=== PATIENT | male | born 1950 | race Caucasian/White ===

== ENCOUNTER 2022-01-17 19:01 | Inpatient (IN) | payer MEDICARE, OTHER ==
[2022-01-17] MEDS: Apixaban 5 MG TAB PO SCH (21:49)
[2022-01-17] MEDS: Famotidine 20 MG TAB PO SCH (21:49)
[2022-01-17] MEDS: Benzonatate 100 MG CAP PO SCH (21:49)
[2022-01-17] MEDS: Melatonin 3 MG TAB PO PRN (22:34)
[2022-01-17 23:21] LABS: Bilirubin Small (Negative); Blood, Urine Large (Negative); Clarity Slightly Cloudy (Clear); Glucose, Urine (Dipstick) Negative (Negative); Ketone, Urine 40 mg/dL (Negative); Leukocyte Trace (Negative); Nitrite Negative (Negative); Protein, Urine (Dipstick) 30 mg/dL (Neg-Trace); Urobilinogen 0.2 mg/dL (Less than 2); pH, Urine 5.5 (5.0-9.0)
[2022-01-17 23:27] LABS: RBC/HPF Greater than 50 HPF (0-3)
[2022-01-17] MEDS: Acetaminophen 325 MG TAB PO PRN (23:30)
[2022-01-18 05:26] LABS: #Basophils 0.2 thou/uL (0.0-0.2); #Eosinphils 0.5 thou/uL (0.0-0.7); #Lymphocytes 1.2 thou/uL (1.20-3.40); #Monocytes 1.2 thou/uL (0.11-0.59); %Basophils 2.8 % (0.0-1.0); %Eosinophils 5.9 % (0.0-10.0); %Lymphocytes 15.2 % (21.0-51.0); %Monocytes 14.2 % (0.0-10.0); %Neutrophils 61.9 % (42.0-75.0); Mean Corpuscular HGB CONC 32.7 g/dL (32.0-36.0); Mean Corpuscular Hemoglobin 29.6 pg (27.0-31.0); Mean Corpuscular Volume 90.5 fL (78.0-98.0); Mean Platelet Volume 7.2 fL (7.4-10.4); Platelet Count 311 thou/uL (130-400); RBC Distribution Width 11.8 % (11.5-14.5); Red Blood Cell (RBC) Count 5.08 mill/uL (4.70-6.10); White Blood Cell (WBC) Count 8.1 thou/uL (4.8-10.8)
[2022-01-18] MEDS: Sodium Chloride 0.65% Nasal 44 ML BOT EA NARE PRN ×2 (06:16→20:06)
[2022-01-18 06:18] LABS: Anion Gap 17 mmol/L (10-20); BUN (Urea Nitrogen) 17 mg/dL (8.4-25.7); Calc. Creatinine Clearance 108 mL/min (70-130); Carbon Dioxide 25 mmol/L (23-31); Chloride 101 mmol/L (98-107); Glucose 89 mg/dL (80-115); Potassium 4.5 mmol/L (3.5-5.1); Sodium 138 mmol/L (136-145)
[2022-01-18] MEDS: Acetaminophen 325 MG TAB PO PRN ×2 (08:13→20:06)
[2022-01-18] MEDS: Famotidine 20 MG TAB PO SCH ×2 (08:13→20:07)
[2022-01-18] MEDS: Apixaban 5 MG TAB PO SCH ×2 (08:13→20:05)
[2022-01-18] MEDS: Propranolol 10 MG TAB PO SCH (08:13)
[2022-01-18] MEDS: Benzonatate 100 MG CAP PO SCH ×3 (08:13→20:08)
[2022-01-18] MEDS: Clotrimazole 1% Cream 15 GM TUBE TOP SCH ×2 (09:48→20:07)
[2022-01-18] MEDS: Melatonin 3 MG TAB PO PRN (20:05)
[2022-01-19] MEDS: Apixaban 5 MG TAB PO SCH ×2 (09:04→21:05)
[2022-01-19] MEDS: Propranolol 10 MG TAB PO SCH (09:04)
[2022-01-19] MEDS: Famotidine 20 MG TAB PO SCH (09:04)
[2022-01-19] MEDS: Acetaminophen 325 MG TAB PO PRN ×2 (09:05→21:04)
[2022-01-19] MEDS: Benzonatate 100 MG CAP PO SCH ×3 (09:08→21:05)
[2022-01-19] MEDS: Clotrimazole 1% Cream 15 GM TUBE TOP SCH ×2 (09:08→21:05)
[2022-01-19] MEDS: Polyethylene Glycol 3350 17 GM Packet PO PRN (09:12)
[2022-01-19] MEDS: Melatonin 3 MG TAB PO PRN (21:05)
[2022-01-20] MEDS: GUAIFENESIN SF SOLN 200 MG/10 ML UDCUP PO PRN ×3 (05:31→20:04)
[2022-01-20] MEDS: Famotidine 20 MG TAB PO SCH ×2 (09:26→21:27)
[2022-01-20] MEDS: Propranolol 10 MG TAB PO SCH (09:26)
[2022-01-20] MEDS: Apixaban 5 MG TAB PO SCH ×2 (09:26→21:27)
[2022-01-20] MEDS: Benzonatate 100 MG CAP PO SCH ×3 (09:26→21:27)
[2022-01-20] MEDS: Clotrimazole 1% Cream 15 GM TUBE TOP SCH ×2 (09:27→21:28)
[2022-01-20] MEDS: Acetaminophen 325 MG TAB PO PRN (13:08)
[2022-01-21] MEDS: Melatonin 3 MG TAB PO PRN (00:38)
[2022-01-21] MEDS: GUAIFENESIN SF SOLN 200 MG/10 ML UDCUP PO PRN (00:38)
[2022-01-21] MEDS: Acetaminophen 325 MG TAB PO PRN ×2 (00:38→08:50)
[2022-01-21] MEDS: Albuterol 200 PUFF (6.7GM INHALER) INH PRN ×2 (08:47→20:06)
[2022-01-21] MEDS: Famotidine 20 MG TAB PO SCH ×2 (08:50→20:07)
[2022-01-21] MEDS: Propranolol 10 MG TAB PO SCH (08:52)
[2022-01-21] MEDS: Benzonatate 100 MG CAP PO SCH ×3 (08:52→20:07)
[2022-01-21] MEDS: Clotrimazole 1% Cream 15 GM TUBE TOP SCH ×2 (08:52→20:08)
[2022-01-21] MEDS: Apixaban 5 MG TAB PO SCH ×2 (08:52→20:07)
[2022-01-21] MEDS: Melatonin 3 MG TAB PO SCH (20:07)
[2022-01-22] MEDS: GUAIFENESIN SF SOLN 200 MG/10 ML UDCUP PO PRN ×2 (00:50→23:04)
[2022-01-22] MEDS: Acetaminophen 325 MG TAB PO PRN ×4 (00:51→22:16)
[2022-01-22 01:14] LABS: Bilirubin Negative (Negative); Blood, Urine Large (Negative); Clarity Clear (Clear); Glucose, Urine (Dipstick) Negative (Negative); Ketone, Urine Negative (Negative); Leukocyte Negative (Negative); Nitrite Negative (Negative); Protein, Urine (Dipstick) Negative (Neg-Trace); Urobilinogen 0.2 mg/dL (Less than 2); pH, Urine 5.5 (5.0-9.0)
[2022-01-22 01:18] LABS: Bacteria/HPF Rare-Few HPF (None Seen); Specific Gravity, Urine 1.005 (1.002-1.036); Squamous Epithelial 0-3 HPF (0-3); Urine Culture Reflex No No
[2022-01-22] MEDS: Albuterol 200 PUFF (6.7GM INHALER) INH PRN ×3 (08:00→21:16)
[2022-01-22] MEDS: Propranolol 10 MG TAB PO SCH (08:34)
[2022-01-22] MEDS: Benzonatate 100 MG CAP PO SCH ×3 (08:34→21:17)
[2022-01-22] MEDS: Famotidine 20 MG TAB PO SCH ×2 (08:34→21:18)
[2022-01-22] MEDS: Apixaban 5 MG TAB PO SCH ×2 (08:35→21:17)
[2022-01-22] MEDS: Clotrimazole 1% Cream 15 GM TUBE TOP SCH ×2 (08:36→21:18)
[2022-01-22] MEDS: Melatonin 3 MG TAB PO SCH (21:17)
[2022-01-23] MEDS: Acetaminophen 325 MG TAB PO PRN (05:44)
[2022-01-23] MEDS: Propranolol 10 MG TAB PO SCH (09:47)
[2022-01-23] MEDS: Apixaban 5 MG TAB PO SCH ×2 (09:48→20:49)
[2022-01-23] MEDS: Benzonatate 100 MG CAP PO SCH ×3 (09:48→20:49)
[2022-01-23] MEDS: Famotidine 20 MG TAB PO SCH ×2 (09:48→21:16)
[2022-01-23] MEDS: Clotrimazole 1% Cream 15 GM TUBE TOP SCH ×2 (09:49→21:16)
[2022-01-23] MEDS: Albuterol 200 PUFF (6.7GM INHALER) INH PRN (09:52)
[2022-01-23] MEDS: GUAIFENESIN SF SOLN 200 MG/10 ML UDCUP PO PRN (16:46)
[2022-01-23] MEDS: Melatonin 3 MG TAB PO SCH (20:49)
[2022-01-24] MEDS: Benzonatate 100 MG CAP PO SCH ×3 (09:44→20:16)
[2022-01-24] MEDS: Famotidine 20 MG TAB PO SCH ×2 (09:44→20:17)
[2022-01-24] MEDS: Propranolol 10 MG TAB PO SCH (09:44)
[2022-01-24] MEDS: Apixaban 5 MG TAB PO SCH ×2 (09:44→20:17)
[2022-01-24] MEDS: Clotrimazole 1% Cream 15 GM TUBE TOP SCH ×2 (09:44→20:18)
[2022-01-24] MEDS: Melatonin 3 MG TAB PO SCH (20:15)
[2022-01-25] MEDS: Apixaban 5 MG TAB PO SCH ×2 (09:08→20:08)
[2022-01-25] MEDS: Famotidine 20 MG TAB PO SCH ×2 (09:08→20:05)
[2022-01-25] MEDS: Propranolol 10 MG TAB PO SCH (09:08)
[2022-01-25] MEDS: Benzonatate 100 MG CAP PO SCH ×3 (09:08→20:08)
[2022-01-25] MEDS: Clotrimazole 1% Cream 15 GM TUBE TOP SCH ×2 (09:09→20:10)
[2022-01-25] MEDS: GUAIFENESIN SF SOLN 200 MG/10 ML UDCUP PO PRN (19:35)
[2022-01-25] MEDS: Acetaminophen 325 MG TAB PO PRN (20:05)
[2022-01-25] MEDS: Melatonin 3 MG TAB PO SCH (20:07)
[2022-01-26] MEDS: Acetaminophen 325 MG TAB PO PRN ×3 (02:38→20:36)
[2022-01-26] MEDS: GUAIFENESIN SF SOLN 200 MG/10 ML UDCUP PO PRN ×2 (02:39→20:32)
[2022-01-26] MEDS: Apixaban 5 MG TAB PO SCH ×2 (09:22→20:31)
[2022-01-26] MEDS: Clotrimazole 1% Cream 15 GM TUBE TOP SCH ×2 (09:22→20:32)
[2022-01-26] MEDS: Famotidine 20 MG TAB PO SCH ×2 (09:22→20:31)
[2022-01-26] MEDS: Benzonatate 100 MG CAP PO SCH ×3 (09:22→20:31)
[2022-01-26] MEDS: Propranolol 10 MG TAB PO SCH (09:22)
[2022-01-26] MEDS: Melatonin 3 MG TAB PO SCH (20:31)
[2022-01-27] MEDS: Acetaminophen 325 MG TAB PO PRN ×3 (00:52→20:44)
[2022-01-27] MEDS: GUAIFENESIN SF SOLN 200 MG/10 ML UDCUP PO PRN ×3 (00:53→19:55)
[2022-01-27] MEDS: Albuterol 200 PUFF (6.7GM INHALER) INH PRN ×3 (00:56→15:44)
[2022-01-27] MEDS ORDERED: Tamsulosin HCl 0.4 MG CAP ONE (08:04)
[2022-01-27] MEDS: Propranolol 10 MG TAB PO SCH (08:52)
[2022-01-27] MEDS: Famotidine 20 MG TAB PO SCH ×2 (08:52→20:27)
[2022-01-27] MEDS: Benzonatate 100 MG CAP PO SCH ×3 (08:52→20:24)
[2022-01-27] MEDS: Apixaban 5 MG TAB PO SCH (08:52)
[2022-01-27] MEDS: Clotrimazole 1% Cream 15 GM TUBE TOP SCH ×2 (08:56→20:28)
[2022-01-27 12:58] LABS: Clarity Slightly Cloudy (Clear)
[2022-01-27 13:05] LABS: Leukocyte Unable to Interpret (Negative); Nitrite Negative (Negative)
[2022-01-27 13:06] LABS: Glucose, Urine (Dipstick) Negative (Negative); Ketone, Urine Trace mg/dL (Negative); Protein, Urine (Dipstick) 100 mg/dL (Neg-Trace)
[2022-01-27 13:07] LABS: Bilirubin Moderate (Negative); Blood, Urine Large (Negative); RBC/HPF Greater than 50 HPF (0-3); Squamous Epithelial 0-3 HPF (0-3)
[2022-01-27 13:08] LABS: Bacteria/HPF 2+ HPF (None Seen)
[2022-01-27 13:17] LABS: Anion Gap 14 mmol/L (10-20); BUN (Urea Nitrogen) 11 mg/dL (8.4-25.7); Calc. Creatinine Clearance 117 mL/min (70-130); Calcium 9.7 mg/dL (7.8-10.44); Carbon Dioxide 27 mmol/L (23-31); Chloride 102 mmol/L (98-107); Glucose 106 mg/dL (80-115); Sodium 139 mmol/L (136-145)
[2022-01-27 13:37] LABS: Hemoglobin 13.8 g/dL (14.0-18.0); Mean Corpuscular Hemoglobin 29.3 pg (27.0-31.0); Mean Corpuscular Volume 91.5 fL (78.0-98.0); Mean Platelet Volume 7.2 fL (7.4-10.4); Platelet Count 223 thou/uL (130-400); Red Blood Cell (RBC) Count 4.69 mill/uL (4.70-6.10); White Blood Cell (WBC) Count 7.4 thou/uL (4.8-10.8)
[2022-01-27 14:04] LABS: Eosinophils 8 % (0-10); Lymphocytes 18 % (21-51); Manual Diff?? YES; Monocytes 9 % (0-10); Neutrophil 65 % (42-75)
[2022-01-27 14:05] LABS: Anisocytosis SLIGHT = 6-15 cells (100X) (0-5/hpf); Platelet Morphology Comment Appears Adequate
[2022-01-27 14:06] LABS: MDiff Complete? YES
[2022-01-27] MEDS: Tamsulosin HCl 0.4 MG CAP PO SCH (20:24)
[2022-01-27] MEDS: Melatonin 3 MG TAB PO SCH ×2 (20:24→20:30)
[2022-01-28] MEDS: GUAIFENESIN SF SOLN 200 MG/10 ML UDCUP PO PRN (01:38)
[2022-01-28] MEDS: Acetaminophen 325 MG TAB PO PRN ×2 (08:18→20:33)
[2022-01-28] MEDS: Benzonatate 100 MG CAP PO SCH ×3 (08:18→20:24)
[2022-01-28] MEDS: Famotidine 20 MG TAB PO SCH ×2 (08:18→20:24)
[2022-01-28] MEDS: Propranolol 10 MG TAB PO SCH (08:20)
[2022-01-28] MEDS: Clotrimazole 1% Cream 15 GM TUBE TOP SCH ×2 (08:20→20:24)
[2022-01-28] MEDS: Albuterol 200 PUFF (6.7GM INHALER) INH PRN (08:26)
[2022-01-28] MEDS ORDERED: guaiFENesin/Codeine Phosphate 100 mg/10 mg 5 ml UD Cup PO PRN (13:09)
[2022-01-28] MEDS ORDERED: predniSONE 20 MG TAB PO SCH ×2 (13:30→14:00)
[2022-01-28] MEDS: Melatonin 3 MG TAB PO SCH (20:22)
[2022-01-28] MEDS: Tamsulosin HCl 0.4 MG CAP PO SCH (20:25)
[2022-01-29] MEDS: predniSONE 20 MG TAB PO SCH (09:03)
[2022-01-29] MEDS: Albuterol 200 PUFF (6.7GM INHALER) INH PRN (09:03)
[2022-01-29] MEDS: Propranolol 10 MG TAB PO SCH (09:03)
[2022-01-29] MEDS: Benzonatate 100 MG CAP PO SCH ×3 (09:03→20:11)
[2022-01-29] MEDS: Famotidine 20 MG TAB PO SCH ×2 (09:03→20:11)
[2022-01-29] MEDS: Acetaminophen 325 MG TAB PO PRN ×2 (09:06→20:16)
[2022-01-29] MEDS: Clotrimazole 1% Cream 15 GM TUBE TOP SCH ×2 (09:07→20:08)
[2022-01-29] MEDS ORDERED: Mometasone/Formoterol 60 PUFF AER INH SCH (19:00)
[2022-01-29] MEDS: Amoxicillin/Potassium Clav 875 MG TAB PO SCH (20:10)
[2022-01-29] MEDS: GUAIFENESIN SF SOLN 200 MG/10 ML UDCUP PO PRN (20:10)
[2022-01-29] MEDS: Melatonin 3 MG TAB PO SCH (20:11)
[2022-01-29] MEDS: Tamsulosin HCl 0.4 MG CAP PO SCH (20:11)
[2022-01-30] MEDS: Acetaminophen 325 MG TAB PO PRN ×2 (10:05→21:09)
[2022-01-30] MEDS: predniSONE 20 MG TAB PO SCH (10:05)
[2022-01-30] MEDS: Propranolol 10 MG TAB PO SCH (10:07)
[2022-01-30] MEDS: Famotidine 20 MG TAB PO SCH ×2 (10:07→21:02)
[2022-01-30] MEDS: Benzonatate 100 MG CAP PO SCH ×3 (10:07→21:02)
[2022-01-30] MEDS: Amoxicillin/Potassium Clav 875 MG TAB PO SCH ×2 (10:08→21:03)
[2022-01-30] MEDS: Clotrimazole 1% Cream 15 GM TUBE TOP SCH ×2 (10:08→21:03)
[2022-01-30] MEDS: Mometasone/Formoterol 60 PUFF AER INH SCH ×2 (10:08→21:01)
[2022-01-30] MEDS: Polyethylene Glycol 3350 17 GM Packet PO PRN (16:28)
[2022-01-30] MEDS: Melatonin 3 MG TAB PO SCH (21:02)
[2022-01-30] MEDS: Tamsulosin HCl 0.4 MG CAP PO SCH (21:02)
[2022-01-30] MEDS: GUAIFENESIN SF SOLN 200 MG/10 ML UDCUP PO PRN (21:09)
[2022-01-31] MEDS: predniSONE 20 MG TAB PO SCH (09:10)
[2022-01-31] MEDS: Amoxicillin/Potassium Clav 875 MG TAB PO SCH ×2 (09:10→20:32)
[2022-01-31] MEDS: Benzonatate 100 MG CAP PO SCH ×3 (09:10→20:32)
[2022-01-31] MEDS: Famotidine 20 MG TAB PO SCH ×2 (09:11→20:32)
[2022-01-31] MEDS: Clotrimazole 1% Cream 15 GM TUBE TOP SCH ×2 (09:11→20:32)
[2022-01-31] MEDS: Propranolol 10 MG TAB PO SCH (09:11)
[2022-01-31] MEDS: Mometasone/Formoterol 60 PUFF AER INH SCH ×2 (09:11→20:31)
[2022-01-31] MEDS: Acetaminophen 325 MG TAB PO PRN ×2 (09:15→20:37)
[2022-01-31] MEDS: Tamsulosin HCl 0.4 MG CAP PO SCH (20:32)
[2022-01-31] MEDS: Melatonin 3 MG TAB PO SCH (20:32)
[2022-01-31] MEDS: GUAIFENESIN SF SOLN 200 MG/10 ML UDCUP PO PRN (20:37)
[2022-02-01] MEDS: Acetaminophen 325 MG TAB PO PRN ×2 (08:58→21:08)
[2022-02-01] MEDS: Amoxicillin/Potassium Clav 875 MG TAB PO SCH ×2 (09:00→09:05)
[2022-02-01] MEDS: Benzonatate 100 MG CAP PO SCH ×3 (09:04→20:50)
[2022-02-01] MEDS: predniSONE 20 MG TAB PO SCH (09:05)
[2022-02-01] MEDS: Famotidine 20 MG TAB PO SCH ×2 (09:05→20:50)
[2022-02-01] MEDS: Mometasone/Formoterol 60 PUFF AER INH SCH ×2 (09:06→21:19)
[2022-02-01] MEDS: Clotrimazole 1% Cream 15 GM TUBE TOP SCH ×2 (09:06→20:51)
[2022-02-01] MEDS: Propranolol 10 MG TAB PO SCH (09:07)
[2022-02-01] MEDS: Polyethylene Glycol 3350 17 GM Packet PO PRN ×2 (09:16→22:20)
[2022-02-01] MEDS: Melatonin 3 MG TAB PO SCH (20:50)
[2022-02-01] MEDS: Tamsulosin HCl 0.4 MG CAP PO SCH (20:50)
[2022-02-01] MEDS: GUAIFENESIN SF SOLN 200 MG/10 ML UDCUP PO PRN (21:08)
[2022-02-01] MEDS: Apixaban 2.5 MG TAB PO SCH (22:20)
[2022-02-02 05:17] LABS: Hemoglobin 13.7 g/dL (14.0-18.0); Platelet Count 290 thou/uL (130-400)
[2022-02-02 05:32] LABS: Calc. Creatinine Clearance 110 mL/min (70-130)
[2022-02-02] MEDS: Polyethylene Glycol 3350 17 GM Packet PO PRN (08:42)
[2022-02-02] MEDS: Amoxicillin/Potassium Clav 875 MG TAB PO SCH ×2 (08:43→20:15)
[2022-02-02] MEDS: Apixaban 2.5 MG TAB PO SCH ×2 (08:43→20:15)
[2022-02-02] MEDS: predniSONE 20 MG TAB PO SCH (08:43)
[2022-02-02] MEDS: Benzonatate 100 MG CAP PO SCH ×3 (08:43→20:15)
[2022-02-02] MEDS: Famotidine 20 MG TAB PO SCH ×2 (08:43→20:16)
[2022-02-02] MEDS: Acetaminophen 325 MG TAB PO PRN ×3 (08:44→20:22)
[2022-02-02] MEDS: Mometasone/Formoterol 60 PUFF AER INH SCH ×2 (09:36→20:16)
[2022-02-02] MEDS: Clotrimazole 1% Cream 15 GM TUBE TOP SCH ×2 (09:36→20:16)
[2022-02-02] MEDS: Melatonin 3 MG TAB PO SCH (20:16)
[2022-02-02] MEDS: Tamsulosin HCl 0.4 MG CAP PO SCH (20:16)
[2022-02-02] MEDS: GUAIFENESIN SF SOLN 200 MG/10 ML UDCUP PO PRN (20:23)
[2022-02-03 05:33] LABS: Lymphocytes 19 % (21-51); MDiff Complete? YES; Mean Corpuscular HGB CONC 32.9 g/dL (32.0-36.0); Mean Corpuscular Hemoglobin 29.8 pg (27.0-31.0); Mean Corpuscular Volume 90.7 fL (78.0-98.0); Mean Platelet Volume 6.7 fL (7.4-10.4); Monocytes 18 % (0-10); Neutrophil 62 % (42-75); Platelet Count 289 thou/uL (130-400); RBC Distribution Width 12.4 % (11.5-14.5); White Blood Cell (WBC) Count 15.6 thou/uL (4.8-10.8)
[2022-02-03 05:34] LABS: Anion Gap 14 mmol/L (10-20); BUN (Urea Nitrogen) 14 mg/dL (8.4-25.7); Calc. Creatinine Clearance 112 mL/min (70-130); Carbon Dioxide 28 mmol/L (23-31); Chloride 101 mmol/L (98-107); Glucose 79 mg/dL (80-115); Potassium 4.4 mmol/L (3.5-5.1); Sodium 139 mmol/L (136-145)
[2022-02-03] MEDS: Benzonatate 100 MG CAP PO SCH ×3 (08:48→21:08)
[2022-02-03] MEDS: Amoxicillin/Potassium Clav 875 MG TAB PO SCH ×2 (08:48→21:08)
[2022-02-03] MEDS: predniSONE 20 MG TAB PO SCH (08:48)
[2022-02-03] MEDS: Apixaban 2.5 MG TAB PO SCH ×2 (08:48→21:08)
[2022-02-03] MEDS: Clotrimazole 1% Cream 15 GM TUBE TOP SCH ×2 (08:49→21:09)
[2022-02-03] MEDS: Mometasone/Formoterol 60 PUFF AER INH SCH ×2 (08:49→21:09)
[2022-02-03] MEDS: Famotidine 20 MG TAB PO SCH ×2 (08:49→21:08)
[2022-02-03] MEDS: Acetaminophen 325 MG TAB PO PRN ×2 (08:57→23:30)
[2022-02-03] MEDS: Polyethylene Glycol 3350 17 GM Packet PO PRN (08:57)
[2022-02-03 14:33] VITALS: BMI 26.7
[2022-02-03] MEDS ORDERED: guaiFENesin/Codeine Phosphate 100 mg/10 mg 5 ml UD Cup PO PRN (16:06)
[2022-02-03] MEDS: Melatonin 3 MG TAB PO SCH (21:08)
[2022-02-03] MEDS: Tamsulosin HCl 0.4 MG CAP PO SCH (21:08)
[2022-02-03] MEDS: Primidone 50 MG TAB PO SCH (21:08)
[2022-02-04] MEDS: Benzonatate 100 MG CAP PO SCH ×3 (08:36→21:06)
[2022-02-04] MEDS: Famotidine 20 MG TAB PO SCH ×2 (08:37→21:06)
[2022-02-04] MEDS: Amoxicillin/Potassium Clav 875 MG TAB PO SCH ×2 (08:37→21:06)
[2022-02-04] MEDS: Acetaminophen 325 MG TAB PO PRN ×2 (08:37→21:28)
[2022-02-04] MEDS: Apixaban 2.5 MG TAB PO SCH ×2 (08:38→21:06)
[2022-02-04] MEDS: Cholecalciferol (Vitamin D3) 400 UNITS TAB PO SCH (08:38)
[2022-02-04] MEDS: Clotrimazole 1% Cream 15 GM TUBE TOP SCH ×2 (08:38→21:07)
[2022-02-04] MEDS: Zinc Sulfate 220 MG CAP PO SCH (08:38)
[2022-02-04] MEDS: Ascorbic Acid 500 mg Chewable Tablet PO SCH (08:38)
[2022-02-04] MEDS: Mometasone/Formoterol 60 PUFF AER INH SCH ×2 (08:39→21:21)
[2022-02-04] MEDS: Polyethylene Glycol 3350 17 GM Packet PO PRN (11:22)
[2022-02-04] MEDS: Tamsulosin HCl 0.4 MG CAP PO SCH (21:05)
[2022-02-04] MEDS: Melatonin 3 MG TAB PO SCH (21:06)
[2022-02-04] MEDS: GUAIFENESIN SF SOLN 200 MG/10 ML UDCUP PO PRN (21:29)
[2022-02-04] MEDS: Primidone 50 MG TAB PO SCH (21:36)
[2022-02-05] MEDS: Acetaminophen 325 MG TAB PO PRN ×2 (08:30→21:08)
[2022-02-05] MEDS: Ascorbic Acid 500 mg Chewable Tablet PO SCH (08:31)
[2022-02-05] MEDS: Zinc Sulfate 220 MG CAP PO SCH (08:31)
[2022-02-05] MEDS: Benzonatate 100 MG CAP PO SCH ×3 (08:31→21:08)
[2022-02-05] MEDS: Apixaban 2.5 MG TAB PO SCH ×2 (08:31→21:09)
[2022-02-05] MEDS: Amoxicillin/Potassium Clav 875 MG TAB PO SCH ×2 (08:31→21:08)
[2022-02-05] MEDS: Cholecalciferol (Vitamin D3) 400 UNITS TAB PO SCH (08:31)
[2022-02-05] MEDS: Famotidine 20 MG TAB PO SCH ×2 (08:31→21:09)
[2022-02-05] MEDS: Mometasone/Formoterol 60 PUFF AER INH SCH ×2 (08:32→21:22)
[2022-02-05] MEDS: Clotrimazole 1% Cream 15 GM TUBE TOP SCH ×2 (08:32→21:25)
[2022-02-05] MEDS: Polyethylene Glycol 3350 17 GM Packet PO PRN (08:34)
[2022-02-05] MEDS ORDERED: Ibuprofen 600 MG TAB PO PRN (10:32)
[2022-02-05] MEDS: GUAIFENESIN SF SOLN 200 MG/10 ML UDCUP PO PRN (21:08)
[2022-02-05] MEDS: Primidone 50 MG TAB PO SCH (21:09)
[2022-02-05] MEDS: Melatonin 3 MG TAB PO SCH (21:09)
[2022-02-05] MEDS: Tamsulosin HCl 0.4 MG CAP PO SCH (21:09)
[2022-02-06] MEDS: Acetaminophen 325 MG TAB PO PRN ×2 (04:25→20:11)
[2022-02-06] MEDS: Ascorbic Acid 500 mg Chewable Tablet PO SCH (08:52)
[2022-02-06] MEDS: Amoxicillin/Potassium Clav 875 MG TAB PO SCH ×2 (08:52→20:12)
[2022-02-06] MEDS: Benzonatate 100 MG CAP PO SCH ×3 (08:52→20:11)
[2022-02-06] MEDS: Apixaban 2.5 MG TAB PO SCH ×2 (08:52→20:14)
[2022-02-06] MEDS: Cholecalciferol (Vitamin D3) 400 UNITS TAB PO SCH (08:53)
[2022-02-06] MEDS: Famotidine 20 MG TAB PO SCH ×2 (08:53→20:12)
[2022-02-06] MEDS: Clotrimazole 1% Cream 15 GM TUBE TOP SCH ×2 (08:53→20:12)
[2022-02-06] MEDS: Mometasone/Formoterol 60 PUFF AER INH SCH ×2 (08:53→20:14)
[2022-02-06] MEDS: Zinc Sulfate 220 MG CAP PO SCH (08:54)
[2022-02-06] MEDS: GUAIFENESIN SF SOLN 200 MG/10 ML UDCUP PO PRN (20:11)
[2022-02-06] MEDS: Melatonin 3 MG TAB PO SCH (20:12)
[2022-02-06] MEDS: Primidone 50 MG TAB PO SCH (20:13)
[2022-02-06] MEDS: Tamsulosin HCl 0.4 MG CAP PO SCH (20:13)
[2022-02-07] MEDS: Cholecalciferol (Vitamin D3) 400 UNITS TAB PO SCH (08:38)
[2022-02-07] MEDS: Clotrimazole 1% Cream 15 GM TUBE TOP SCH ×2 (08:38→20:22)
[2022-02-07] MEDS: Ascorbic Acid 500 mg Chewable Tablet PO SCH (08:38)
[2022-02-07] MEDS: Zinc Sulfate 220 MG CAP PO SCH (08:38)
[2022-02-07] MEDS: Famotidine 20 MG TAB PO SCH ×2 (08:38→20:21)
[2022-02-07] MEDS: Benzonatate 100 MG CAP PO SCH ×3 (08:38→20:22)
[2022-02-07] MEDS: Amoxicillin/Potassium Clav 875 MG TAB PO SCH ×2 (08:38→20:19)
[2022-02-07] MEDS: Mometasone/Formoterol 60 PUFF AER INH SCH ×2 (08:38→20:23)
[2022-02-07] MEDS: Apixaban 2.5 MG TAB PO SCH ×2 (08:38→20:21)
[2022-02-07] MEDS: Acetaminophen 325 MG TAB PO PRN ×2 (08:45→20:17)
[2022-02-07] MEDS: Melatonin 3 MG TAB PO SCH (20:20)
[2022-02-07] MEDS: Tamsulosin HCl 0.4 MG CAP PO SCH (20:21)
[2022-02-07] MEDS: GUAIFENESIN SF SOLN 200 MG/10 ML UDCUP PO PRN (20:27)
[2022-02-08] MEDS: Amoxicillin/Potassium Clav 875 MG TAB PO SCH (09:19)
[2022-02-08] MEDS: Ascorbic Acid 500 mg Chewable Tablet PO SCH (09:19)
[2022-02-08] MEDS: Cholecalciferol (Vitamin D3) 400 UNITS TAB PO SCH (09:19)
[2022-02-08] MEDS: Famotidine 20 MG TAB PO SCH ×2 (09:20→20:01)
[2022-02-08] MEDS: Mometasone/Formoterol 60 PUFF AER INH SCH ×2 (09:20→20:09)
[2022-02-08] MEDS: Apixaban 2.5 MG TAB PO SCH ×2 (09:20→20:03)
[2022-02-08] MEDS: Zinc Sulfate 220 MG CAP PO SCH (09:20)
[2022-02-08] MEDS: Benzonatate 100 MG CAP PO SCH ×3 (09:20→20:00)
[2022-02-08] MEDS: Clotrimazole 1% Cream 15 GM TUBE TOP SCH ×2 (09:21→20:04)
[2022-02-08] MEDS: Tamsulosin HCl 0.4 MG CAP PO SCH (20:00)
[2022-02-08] MEDS: Acetaminophen 325 MG TAB PO PRN (20:01)
[2022-02-08] MEDS: Melatonin 3 MG TAB PO SCH (20:03)
[2022-02-08] MEDS: GUAIFENESIN SF SOLN 200 MG/10 ML UDCUP PO PRN (20:04)
[2022-02-09] MEDS: Ascorbic Acid 500 mg Chewable Tablet PO SCH (10:07)
[2022-02-09] MEDS: Zinc Sulfate 220 MG CAP PO SCH (10:07)
[2022-02-09] MEDS: Apixaban 2.5 MG TAB PO SCH ×2 (10:08→20:19)
[2022-02-09] MEDS: Famotidine 20 MG TAB PO SCH ×2 (10:08→20:19)
[2022-02-09] MEDS: Benzonatate 100 MG CAP PO SCH ×3 (10:08→20:16)
[2022-02-09] MEDS: Mometasone/Formoterol 60 PUFF AER INH SCH ×2 (10:08→20:21)
[2022-02-09] MEDS: Clotrimazole 1% Cream 15 GM TUBE TOP SCH ×2 (10:08→20:22)
[2022-02-09] MEDS: Cholecalciferol (Vitamin D3) 400 UNITS TAB PO SCH (10:08)
[2022-02-09] MEDS: Acetaminophen 325 MG TAB PO PRN (20:17)
[2022-02-09] MEDS: Tamsulosin HCl 0.4 MG CAP PO SCH (20:18)
[2022-02-09] MEDS: Melatonin 3 MG TAB PO SCH (20:18)
[2022-02-09] MEDS: GUAIFENESIN SF SOLN 200 MG/10 ML UDCUP PO PRN (20:19)
[2022-02-10] MEDS: Benzonatate 100 MG CAP PO SCH ×3 (08:46→21:10)
[2022-02-10] MEDS: Ascorbic Acid 500 mg Chewable Tablet PO SCH (08:46)
[2022-02-10] MEDS: Famotidine 20 MG TAB PO SCH ×2 (08:46→21:11)
[2022-02-10] MEDS: Zinc Sulfate 220 MG CAP PO SCH (08:46)
[2022-02-10] MEDS: Cholecalciferol (Vitamin D3) 400 UNITS TAB PO SCH (08:46)
[2022-02-10] MEDS: Apixaban 2.5 MG TAB PO SCH ×2 (08:46→21:10)
[2022-02-10] MEDS: Clotrimazole 1% Cream 15 GM TUBE TOP SCH ×2 (08:49→21:16)
[2022-02-10] MEDS: Mometasone/Formoterol 60 PUFF AER INH SCH ×2 (08:50→21:22)
[2022-02-10] MEDS: Melatonin 3 MG TAB PO SCH (21:11)
[2022-02-10] MEDS: Acetaminophen 325 MG TAB PO PRN (21:11)
[2022-02-10] MEDS: Tamsulosin HCl 0.4 MG CAP PO SCH (21:11)
[2022-02-10] MEDS: GUAIFENESIN SF SOLN 200 MG/10 ML UDCUP PO PRN (21:12)
[2022-02-11] MEDS: Cholecalciferol (Vitamin D3) 400 UNITS TAB PO SCH (08:32)
[2022-02-11] MEDS: Benzonatate 100 MG CAP PO SCH ×3 (08:32→20:10)
[2022-02-11] MEDS: Ascorbic Acid 500 mg Chewable Tablet PO SCH (08:32)
[2022-02-11] MEDS: Apixaban 2.5 MG TAB PO SCH ×2 (08:32→20:10)
[2022-02-11] MEDS: Famotidine 20 MG TAB PO SCH ×2 (08:33→20:10)
[2022-02-11] MEDS: Zinc Sulfate 220 MG CAP PO SCH (08:33)
[2022-02-11] MEDS: Clotrimazole 1% Cream 15 GM TUBE TOP SCH ×2 (08:33→20:11)
[2022-02-11] MEDS: Mometasone/Formoterol 60 PUFF AER INH SCH ×2 (08:36→20:11)
[2022-02-11] MEDS: Acetaminophen 325 MG TAB PO PRN (20:10)
[2022-02-11] MEDS: Tamsulosin HCl 0.4 MG CAP PO SCH (20:10)
[2022-02-11] MEDS: Melatonin 3 MG TAB PO SCH (20:11)
[2022-02-11] MEDS: GUAIFENESIN SF SOLN 200 MG/10 ML UDCUP PO PRN (20:11)
[2022-02-12] MEDS: Mometasone/Formoterol 60 PUFF AER INH SCH ×2 (08:14→20:10)
[2022-02-12] MEDS: Famotidine 20 MG TAB PO SCH ×2 (08:15→20:12)
[2022-02-12] MEDS: Benzonatate 100 MG CAP PO SCH ×3 (08:15→20:12)
[2022-02-12] MEDS: Ascorbic Acid 500 mg Chewable Tablet PO SCH (08:15)
[2022-02-12] MEDS: Zinc Sulfate 220 MG CAP PO SCH (08:15)
[2022-02-12] MEDS: Cholecalciferol (Vitamin D3) 400 UNITS TAB PO SCH (08:15)
[2022-02-12] MEDS: Apixaban 2.5 MG TAB PO SCH ×2 (08:15→20:12)
[2022-02-12] MEDS: Clotrimazole 1% Cream 15 GM TUBE TOP SCH ×2 (08:15→20:12)
[2022-02-12] MEDS: GUAIFENESIN SF SOLN 200 MG/10 ML UDCUP PO PRN (19:26)
[2022-02-12] MEDS: Albuterol 200 PUFF (6.7GM INHALER) INH PRN (19:28)
[2022-02-12] MEDS: Acetaminophen 325 MG TAB PO PRN (20:10)
[2022-02-12] MEDS: Melatonin 3 MG TAB PO SCH (20:12)
[2022-02-12] MEDS: Tamsulosin HCl 0.4 MG CAP PO SCH (20:12)
[2022-02-13] MEDS: Mometasone/Formoterol 60 PUFF AER INH SCH (08:22)
[2022-02-13] MEDS: Benzonatate 100 MG CAP PO SCH (08:22)
[2022-02-13] MEDS: Zinc Sulfate 220 MG CAP PO SCH (08:22)
[2022-02-13] MEDS: Apixaban 2.5 MG TAB PO SCH (08:22)
[2022-02-13] MEDS: Ascorbic Acid 500 mg Chewable Tablet PO SCH (08:22)
[2022-02-13] MEDS: Cholecalciferol (Vitamin D3) 400 UNITS TAB PO SCH (08:22)
[2022-02-13] MEDS: Acetaminophen 325 MG TAB PO PRN (08:23)
[2022-02-13] MEDS: Clotrimazole 1% Cream 15 GM TUBE TOP SCH (08:24)
[2022-02-13] MEDS: Famotidine 20 MG TAB PO SCH (08:24)
[2022-02-13 11:39] VITALS: BP 118/79
[2022-02-13 11:42] VITALS: TEMP 98.1
== END 2022-02-13 11:54 | disposition home health service (06) | DRG 948 ==
LOC: MADMS 19:01
PROVIDERS: ADMIT Family Medicine; ATTEND Family Medicine
DX: R53.81 Other malaise (principal); J96.11 Chronic respiratory failure with hypoxia; G72.9 Myopathy, unspecified; I10 Essential (primary) hypertension; I95.1 Orthostatic hypotension; G25.0 Essential tremor; R31.0 Gross hematuria; R33.9 Retention of urine, unspecified; Z87.01 Personal history of pneumonia (recurrent); Z86.16 Personal history of COVID-19; Z86.711 Personal history of pulmonary embolism; Z99.81 Dependence on supplemental oxygen; Z88.1 Allergy status to other antibiotic agents; Z88.2 Allergy status to sulfonamides; Z79.899 Other long term (current) drug therapy; Z87.442 Personal history of urinary calculi; Z90.49 Acquired absence of other specified parts of digestive tract; Z82.3 Family history of stroke; Z82.49 Family history of ischemic heart disease and other diseases of the circulatory system
CPT/HCPCS: 36415; 71045; 80048; 81001; 82565; 84153; 85014; 85018; 85025; 85049; 87086; J7512